=== PATIENT | male | born 1950 | race Two or more races ===

== ENCOUNTER 2017-04-10 17:55 | Inpatient (IN) | payer OTHER ==
[~2017-04-10] VITALS: Ht 170.2 cm; Wt 87.4 kg
[~2017-04-10 17:55] MED LIST: INSULIN ASPART 100 UNITS/ML, PEN SQ-INSULIN SCH; METOPROLOL TARTRATE 25 MG TABLET PO ONE
[2017-04-10] MEDS ORDERED: ALLO100T30 PO (18:13)
[2017-04-10] MEDS ORDERED: NAPR-816 PO (18:13)
[2017-04-10] MEDS ORDERED: ATOR20TA9 PO (18:13)
[2017-04-10] MEDS ORDERED: COLC0.6T37 PO (18:13)
[2017-04-10] MEDS ORDERED: ATEN25TA PO (18:13)
[2017-04-10] MEDS ORDERED: ASPI-621 PO (18:13)
[2017-04-10] MEDS ORDERED: LISI-170 PO (18:13)
[2017-04-10 18:50] VITALS: BP 132/71
[2017-04-10 19:02] LABS: PATH.CAST-FLAG NOT PRESENT; SPERM-FLAG NOT PRESENT; SRC-FLAG NOT PRESENT; XTAL-FLAG NOT PRESENT; YLC-FLAG NOT PRESENT
[2017-04-10] MEDS ORDERED: DO NOT GIVE XX SCH (23:00)
[2017-04-10] MEDS ORDERED: CHLORHEXIDINE MOUTHWASH 15 ML UDC MM SCH (23:00)
[2017-04-10] MEDS: MUPIROCIN OINT 2%, 22GM TP SCH (23:18)
[2017-04-11] MEDS ORDERED: ALBUMIN HUMAN 5% 500 ML IV PRN (00:30)
[2017-04-11 04:05] VITALS: BP_SYST 144; BP_SYST 149; BP_DIAS 68; BP_DIAS 78
[2017-04-11] MEDS: MUPIROCIN OINT 2%, 22GM TP SCH (04:57)
[2017-04-11] MEDS ORDERED: PROPOFOL 10 MG/ML, 20ML ONE (06:14)
[2017-04-11] MEDS ORDERED: FENTANYL PF 1000 MCG/20ML ONE (06:14)
[2017-04-11] MEDS ORDERED: MIDAZOLAM 10MG/2 ML ONE (06:14)
[2017-04-11] MEDS ORDERED: CALCIUM CHLORIDE 10%, 10ML SYR ONE (06:15)
[2017-04-11] MEDS ORDERED: ROCURONIUM 10 MG/ML,10ML ONE ×2 (06:15→08:27)
[2017-04-11] MEDS ORDERED: LIDOCAINE GEL 2%, 5ML ONE (06:15)
[2017-04-11] MEDS ORDERED: EPINEPHRINE 1 MG/ML, 1ML ONE (06:15)
[2017-04-11] MEDS ORDERED: TRANEXAMIC ACID 100 MG/ML, 10ML ONE ×6 (06:15→08:26)
[2017-04-11] MEDS ORDERED: PHENYLEPHRINE 10 MG/ML ONE (06:15)
[2017-04-11] MEDS ORDERED: HEPARIN 1,000 UNITS/ML, 10ML ONE (06:22)
[2017-04-11] MEDS ORDERED: PAPAVERINE 30 MG/ML, 2ML ONE (06:22)
[2017-04-11] MEDS ORDERED: VANCOMYCIN 1,300 MG in SODIUM CHLORIDE 0.9% 250 ML IV PRN (07:30)
[2017-04-11] MEDS ORDERED: REGULAR INSULIN 62.5 UNITS in SODIUM CHLORIDE 0.9% 249.375 ML IV PRN ×2 (07:30→10:46)
[2017-04-11] MEDS ORDERED: POTASSIUM CHLORIDE 80 MEQ, SODIUM BICARBONATE 8.4% 10 MEQ, MAGNESIUM SULFATE 0.5 GM, LI... IV PRN (07:30)
[2017-04-11] MEDS ORDERED: MANNITOL PMX 20% 500 ML IVPB PRN (07:30)
[2017-04-11] MEDS ORDERED: DEXMEDETOMIDINE 200 MCG in SODIUM CHLORIDE 0.9% 48 ML IV SCH (07:30)
[2017-04-11] MEDS ORDERED: EPINEPHRINE 2 MG in SODIUM CHLORIDE 0.9% 248 ML IV SCH (07:30)
[2017-04-11] MEDS ORDERED: PHENYLEPHRINE 10 MG in SODIUM CHLORIDE 0.9% 249 ML IV PRN (07:30)
[2017-04-11] MEDS ORDERED: HEPARIN 1,000 UNITS/ML, 10ML IV ONE (08:24)
[2017-04-11] MEDS ORDERED: PAPAVERINE 30 MG/ML, 2ML IVPush ONE (08:25)
[2017-04-11] MEDS ORDERED: PROTAMINE SULFATE 10 MG/ML, 25ML ONE ×2 (08:26)
[2017-04-11] MEDS ORDERED: LIDOCAINE-MPF 2% ,5ML ONE (10:24)
[2017-04-11] MEDS ORDERED: DOBUTAMINE 250 MG in SODIUM CHLORIDE 0.9% 230 ML IV PRN (10:46)
[2017-04-11] MEDS ORDERED: NITROGLYCERIN/D5W PMX 240 ML IV PRN (10:46)
[2017-04-11] MEDS ORDERED: DEXMEDETOMIDINE 200 MCG in SODIUM CHLORIDE 0.9% 48 ML IV PRN (10:46)
[2017-04-11] MEDS ORDERED: VASOPRESSIN 50 UNIT in SODIUM CHLORIDE 0.9% 250 ML IV PRN (10:46)
[2017-04-11] MEDS ORDERED: SODIUM BICARB 8.4%, 50ML SYRINGE ONE (10:57)
[2017-04-11] MEDS ORDERED: HEPARIN 1,000 UNITS/ML, 30ML ONE (10:57)
[2017-04-11] MEDS ORDERED: LIDOCAINE 2% 100MG/5ML SYRINGE ONE (10:57)
[2017-04-11] MEDS ORDERED: ALBUMIN HUMAN 25% 50 ML ONE (10:57)
[2017-04-11] MEDS ORDERED: VANCOMYCIN 1,300 MG in SODIUM CHLORIDE 0.9% 250 ML IVPB SCH (11:00)
[2017-04-11] MEDS ORDERED: ACETAMINOPHEN 650 MG SUPP PR PRN (11:00)
[2017-04-11] MEDS ORDERED: BISACODYL 10 MG SUPP PR PRN (11:00)
[2017-04-11] MEDS ORDERED: LACTATED RINGERS 1,000 ML IV PRN (11:00)
[2017-04-11] MEDS ORDERED: MIDAZOLAM 1 MG/ML, 5ML IVPush PRN (11:00)
[2017-04-11] MEDS ORDERED: CEFUROXIME 1.5 GM in SODIUM CHLORIDE 0.9% 50 ML IVPB SCH (11:00)
[2017-04-11] MEDS ORDERED: GLUCAGON 1 MG IM PRN (11:00)
[2017-04-11] MEDS ORDERED: DEXTROSE 50%, 50ML SYRINGE IVPush PRN (11:00)
[2017-04-11] MEDS ORDERED: EPINEPHRINE 2 MG in SODIUM CHLORIDE 0.9% 248 ML IV PRN (11:00)
[2017-04-11] MEDS ORDERED: BISACODYL 5 MG EC TABLET PO PRN (11:00)
[2017-04-11] MEDS ORDERED: ACETAMINOPHEN 325 MG TABLET PO PRN (11:00)
[2017-04-11] MEDS: KSCALE TO 4.5 IV SCH ×3 (11:00→23:00)
[2017-04-11] MEDS ORDERED: SODIUM BICARB 8.4%, 50ML SYRINGE IV PRN (11:00)
[2017-04-11] MEDS: INSULIN ASPART 100 UNITS/ML, PEN SQ-INSULIN SCH ×3 (11:00→21:00)
[2017-04-11] MEDS ORDERED: DEXTROSE 4 GM TAB.CHEW PO PRN (11:00)
[2017-04-11] MEDS ORDERED: HYDROcodone/APAP 5/325 TABLET PO PRN (11:00)
[2017-04-11] MEDS ORDERED: PROCHLORPERAZINE 5 MG/ML, 2ML IVPush PRN (11:00)
[2017-04-11 11:13] LABS: ABG COLLECTION SITE ARTERIAL LINE
[2017-04-11] MEDS ORDERED: VANCOMYCIN 1,300 MG in SODIUM CHLORIDE 0.9% 250 ML IVPB ONE (11:30)
[2017-04-11] MEDS: morphine SULFATE 10 MG/ML, 1ML IVPush PRN ×3 (11:38→21:23)
[2017-04-11] MEDS ORDERED: POTASSIUM CHLORIDE PMX 100 ML IV ONE (12:00)
[2017-04-11] MEDS: DOCUSATE 100 MG CAPSULE PO SCH ×2 (12:29→21:09)
[2017-04-11] MEDS: SODIUM CHLORIDE FLUSH 10ML SYR IVF SCH ×3 (12:29→21:08)
[2017-04-11] MEDS: MAGNESIUM SULFATE 1 GM in SODIUM CHLORIDE 0.9% 50 ML IVPB SCH (12:48)
[2017-04-11] MEDS: ONDANSETRON 2MG/ML, 2ML IVPush PRN (15:30)
[2017-04-11 16:40] LABS: HEMATOCRIT 41.6 % (39.2-51.8); HEMOGLOBIN 13.7 g/dL (13.7-18.0)
[2017-04-11] MEDS: HYDROcodone/APAP 10/325 MG TABLET PO PRN ×2 (17:00→21:06)
[2017-04-11] MEDS: OXYcodone IR 5MG TABLET PO PRN (18:25)
[2017-04-11] MEDS: MUPIROCIN OINT 2%, 22GM NAS SCH (21:00)
[2017-04-11 23:20] LABS: HEMATOCRIT 40.9 % (39.2-51.8); HEMOGLOBIN 13.7 g/dL (13.7-18.0)
[2017-04-11 23:23] LABS: BLOOD UREA NITROGEN 15 mg/dL (7-18)
[2017-04-12] MEDS: OXYcodone IR 5MG TABLET PO PRN ×6 (00:34→21:09)
[2017-04-12] MEDS: INSULIN ASPART 100 UNITS/ML, PEN SQ-INSULIN SCH ×6 (01:00→19:00)
[2017-04-12 04:54] LABS: ABG COLLECTION SITE ARTERIAL LINE
[2017-04-12 04:56] LABS: HEMATOCRIT 40.9 % (39.2-51.8); HEMOGLOBIN 13.6 g/dL (13.7-18.0); WHITE BLOOD COUNT 10.2 x10^3/uL (3.4-10)
[2017-04-12] MEDS: KSCALE TO 4.5 IV SCH (05:00)
[2017-04-12 05:06] LABS: BLOOD UREA NITROGEN 17 mg/dL (7-18)
[2017-04-12] MEDS: ONDANSETRON 2MG/ML, 2ML IVPush PRN (06:45)
[2017-04-12] MEDS ORDERED: METOPROLOL TARTRATE 25 MG TABLET ONE (07:59)
[2017-04-12] MEDS ORDERED: FILTER 0.22 MICRON FOR AMIODARONE IV PRN (08:00)
[2017-04-12] MEDS ORDERED: MAGNESIUM HYDROXIDE 8%, 30ML UDC PO PRN (08:00)
[2017-04-12] MEDS ORDERED: AMIODARONE 150 MG in DEXTROSE 5% 100 ML IV ONE (08:00)
[2017-04-12] MEDS: MUPIROCIN OINT 2%, 22GM NAS SCH ×2 (08:19→21:00)
[2017-04-12] MEDS: SODIUM CHLORIDE FLUSH 10ML SYR IVF SCH ×5 (08:19→21:53)
[2017-04-12] MEDS: ASPIRIN 81 MG TABLET EC PO SCH (08:19)
[2017-04-12] MEDS: DOCUSATE 100 MG CAPSULE PO SCH ×2 (08:19→21:54)
[2017-04-12] MEDS: METOPROLOL TARTRATE 25 MG TABLET PO/NG SCH ×2 (08:19→21:54)
[2017-04-12] MEDS: MUPIROCIN OINT 2%, 22GM TP SCH (08:20)
[2017-04-12] MEDS: ALLOPURINOL 300 MG TABLET PO SCH (08:51)
[2017-04-12] MEDS ORDERED: FUROSEMIDE 40 MG/4 ML IV ONE (10:30)
[2017-04-12] MEDS: AMIODARONE 900 MG in DEXTROSE 5% 482 ML IV PRN (10:42)
[2017-04-12] MEDS: MAGNESIUM SULFATE 1 GM in SODIUM CHLORIDE 0.9% 50 ML IVPB SCH (12:54)
[2017-04-12 16:02] VITALS: BP 134/77
[2017-04-12 19:13] VITALS: BP 133/74
[2017-04-12 21:52] VITALS: BP 130/84
[2017-04-12] MEDS: ATORVASTATIN 20 MG TABLET PO SCH (21:54)
[2017-04-13 04:03] VITALS: BP 123/81
[2017-04-13] MEDS: AMIODARONE 900 MG in DEXTROSE 5% 482 ML IV PRN (05:33)
[2017-04-13 05:37] LABS: HEMATOCRIT 42.8 % (39.2-51.8); HEMOGLOBIN 14.2 g/dL (13.7-18.0); WHITE BLOOD COUNT 12.6 x10^3/uL (3.4-10)
[2017-04-13 05:50] LABS: BLOOD UREA NITROGEN 18 mg/dL (7-18)
[2017-04-13] MEDS: INSULIN ASPART 100 UNITS/ML, PEN SQ-INSULIN SCH ×4 (07:00→20:28)
[2017-04-13] MEDS ORDERED: POTASSIUM CHLORIDE 20 MEQ TAB.ER.PRT ONE (08:01)
[2017-04-13] MEDS: FUROSEMIDE 20 MG/2 ML IV SCH (08:09)
[2017-04-13] MEDS: SODIUM CHLORIDE FLUSH 10ML SYR IVF SCH ×6 (08:09→20:30)
[2017-04-13] MEDS: MUPIROCIN OINT 2%, 22GM NAS SCH ×2 (08:10→20:29)
[2017-04-13] MEDS: ASPIRIN 81 MG TABLET EC PO SCH (08:11)
[2017-04-13] MEDS: ALLOPURINOL 300 MG TABLET PO SCH (08:11)
[2017-04-13] MEDS: POTASSIUM CHLORIDE 10 MEQ TABLET.ER PO SCH (08:11)
[2017-04-13] MEDS: DOCUSATE 100 MG CAPSULE PO SCH ×2 (08:11→20:27)
[2017-04-13] MEDS: METOPROLOL TARTRATE 25 MG TABLET PO/NG SCH ×2 (08:12→20:28)
[2017-04-13] MEDS: OXYcodone IR 5MG TABLET PO PRN ×3 (08:12→19:48)
[2017-04-13] MEDS: ENOXAPARIN 40 MG/0.4 ML SQ SCH (08:12)
[2017-04-13 08:18] VITALS: BP 144/90
[2017-04-13] MEDS: MAGNESIUM SULFATE 1 GM in SODIUM CHLORIDE 0.9% 50 ML IVPB SCH (11:18)
[2017-04-13 15:27] VITALS: BP 137/77
[2017-04-13 19:57] VITALS: BP 129/78
[2017-04-13] MEDS: ATORVASTATIN 20 MG TABLET PO SCH (20:27)
[2017-04-14 04:05] VITALS: BP 137/80
[2017-04-14 06:04] LABS: BLOOD UREA NITROGEN 18 mg/dL (7-18)
[2017-04-14] MEDS: INSULIN ASPART 100 UNITS/ML, PEN SQ-INSULIN SCH ×4 (07:00→21:00)
[2017-04-14] MEDS: OXYcodone IR 5MG TABLET PO PRN ×4 (08:00→22:26)
[2017-04-14 08:01] VITALS: BP 148/82
[2017-04-14] MEDS: SODIUM CHLORIDE FLUSH 10ML SYR IVF SCH ×6 (09:00→22:10)
[2017-04-14] MEDS: MUPIROCIN OINT 2%, 22GM NAS SCH ×2 (09:00→22:12)
[2017-04-14] MEDS: FUROSEMIDE 20 MG/2 ML IV SCH (09:04)
[2017-04-14] MEDS: POTASSIUM CHLORIDE 10 MEQ TABLET.ER PO SCH (09:06)
[2017-04-14] MEDS: ASPIRIN 81 MG TABLET EC PO SCH (09:06)
[2017-04-14] MEDS: DOCUSATE 100 MG CAPSULE PO SCH ×2 (09:06→22:12)
[2017-04-14] MEDS: ALLOPURINOL 300 MG TABLET PO SCH (09:07)
[2017-04-14] MEDS: ENOXAPARIN 40 MG/0.4 ML SQ SCH (09:07)
[2017-04-14] MEDS: METOPROLOL TARTRATE 25 MG TABLET PO/NG SCH ×2 (09:08→22:13)
[2017-04-14] MEDS: CLOPIDOGREL 75 MG TABLET PO SCH (09:09)
[2017-04-14 15:56] VITALS: BP 124/70
[2017-04-14 18:34] VITALS: BP 111/73
[2017-04-14] MEDS: ATORVASTATIN 20 MG TABLET PO SCH (21:00)
[2017-04-15 06:01] LABS: BLOOD UREA NITROGEN 23 mg/dL (7-18)
[2017-04-15] MEDS: INSULIN ASPART 100 UNITS/ML, PEN SQ-INSULIN SCH (06:42)
[2017-04-15 07:28] VITALS: BP 134/70
[2017-04-15] MEDS: OXYcodone IR 5MG TABLET PO PRN ×2 (08:16→20:25)
[2017-04-15] MEDS: POTASSIUM CHLORIDE 10 MEQ TABLET.ER PO SCH (08:17)
[2017-04-15] MEDS: DOCUSATE 100 MG CAPSULE PO SCH ×2 (08:17→20:11)
[2017-04-15] MEDS: METOPROLOL TARTRATE 25 MG TABLET PO/NG SCH ×2 (08:17→20:12)
[2017-04-15] MEDS: CLOPIDOGREL 75 MG TABLET PO SCH (08:17)
[2017-04-15] MEDS: ASPIRIN 81 MG TABLET EC PO SCH (08:17)
[2017-04-15] MEDS: MUPIROCIN OINT 2%, 22GM NAS SCH ×2 (08:17→20:11)
[2017-04-15] MEDS: ALLOPURINOL 300 MG TABLET PO SCH (08:17)
[2017-04-15] MEDS: FUROSEMIDE 40 MG/4 ML IV SCH (08:18)
[2017-04-15] MEDS: ENOXAPARIN 40 MG/0.4 ML SQ SCH (08:18)
[2017-04-15] MEDS: SODIUM CHLORIDE FLUSH 10ML SYR IVF SCH ×6 (08:19→20:13)
[2017-04-15 10:09] LABS: HEMATOCRIT 41.3 % (39.2-51.8); HEMOGLOBIN 13.6 g/dL (13.7-18.0); WHITE BLOOD COUNT 9.2 x10^3/uL (3.4-10)
[2017-04-15 13:01] VITALS: BP 113/78
[2017-04-15 19:39] VITALS: BP 108/67
[2017-04-15] MEDS: ATORVASTATIN 20 MG TABLET PO SCH (20:11)
[2017-04-16 01:12] VITALS: BP 118/73
[2017-04-16] MEDS: OXYcodone IR 5MG TABLET PO PRN ×2 (02:00→09:32)
[2017-04-16 04:57] LABS: HEMATOCRIT 42.3 % (39.2-51.8); HEMOGLOBIN 14.2 g/dL (13.7-18.0); WHITE BLOOD COUNT 9.8 x10^3/uL (3.4-10)
[2017-04-16 05:05] LABS: BLOOD UREA NITROGEN 24 mg/dL (7-18)
[2017-04-16 07:09] VITALS: BP 138/79
[2017-04-16] MEDS: ENOXAPARIN 40 MG/0.4 ML SQ SCH (08:26)
[2017-04-16] MEDS: METOPROLOL TARTRATE 25 MG TABLET PO/NG SCH (08:26)
[2017-04-16] MEDS: CLOPIDOGREL 75 MG TABLET PO SCH (08:26)
[2017-04-16] MEDS: FUROSEMIDE 40 MG/4 ML IV SCH (08:26)
[2017-04-16] MEDS: ALLOPURINOL 300 MG TABLET PO SCH (08:26)
[2017-04-16] MEDS: ASPIRIN 81 MG TABLET EC PO SCH (08:27)
[2017-04-16] MEDS: POTASSIUM CHLORIDE 10 MEQ TABLET.ER PO SCH (08:27)
[2017-04-16] MEDS: SODIUM CHLORIDE FLUSH 10ML SYR IVF SCH ×3 (08:27)
[2017-04-16] MEDS: MUPIROCIN OINT 2%, 22GM NAS SCH (08:27)
[2017-04-16] MEDS: DOCUSATE 100 MG CAPSULE PO SCH (08:27)
[2017-04-16] MEDS ORDERED: METO25TA35 PO/NG (09:19)
[2017-04-16] MEDS ORDERED: FURO-93 PO (09:19)
[2017-04-16] MEDS ORDERED: POTA10TA5 PO (09:19)
[2017-04-16] MEDS ORDERED: CLOP75TA PO (09:19)
[2017-04-16] MEDS ORDERED: COLCHICINE 0.6 MG TABLET PO ONE (09:30)
[2017-04-16] MEDS ORDERED: COLCHICINE 0.6 MG TABLET PO SCH (10:30)
[2017-04-16] MEDS ORDERED: OXYC5TAB3 PO (11:38)
[2017-04-16 13:54] VITALS: BP 115/69
[2017-04-17] MEDS ORDERED: COLCHICINE 0.6 MG TABLET PO PRN (09:30)
== END 2017-04-16 15:57 | disposition home or self-care (01) | DRG 236 ==
LOC: 5SO 17:55 → CSU 04-11 10:25 → 5SO 04-12 15:34
PROVIDERS: ADMIT Thoracic Surgery (Cardiothoracic Vascular Surgery); ATTEND Thoracic Surgery (Cardiothoracic Vascular Surgery)
PROC: 02100Z9 Bypass Coronary Artery, One Artery from Left Internal Mammary, Open Approach (ICD-10-PCS; 2017-04-11)
PROC: 06BQ0ZZ Excision of Left Saphenous Vein, Open Approach (ICD-10-PCS; 2017-04-11)
PROC: 5A1221Z Performance of Cardiac Output, Continuous (ICD-10-PCS; 2017-04-11)
PROC: 021009W Bypass Coronary Artery, One Artery from Aorta with Autologous Venous Tissue, Open Approach (ICD-10-PCS; principal; 2017-04-11 07:30)
DX: I25.10 Atherosclerotic heart disease of native coronary artery without angina pectoris (principal); I48.91 Unspecified atrial fibrillation; E78.00 Pure hypercholesterolemia, unspecified; F17.290 Nicotine dependence, other tobacco product, uncomplicated; F32.9 Major depressive disorder, single episode, unspecified; I10 Essential (primary) hypertension; I34.0 Nonrheumatic mitral (valve) insufficiency; I35.1 Nonrheumatic aortic (valve) insufficiency; I49.3 Ventricular premature depolarization; M10.9 Gout, unspecified; Z82.49 Family history of ischemic heart disease and other diseases of the circulatory system; Z87.11 Personal history of peptic ulcer disease; Z87.442 Personal history of urinary calculi
CPT/HCPCS: 36415; 36600; 71010; 80048; 81001; 82040; 82330; 82800; 82803; 82810; 82947; 82962; 83036; 83735; 84132; 84295; 85014; 85018; 85025; 85049; 85347; 85610; 85730; 86850; 86900; 86923; 87081; 93005; 93312; 93321; 93325; 93882; 94002; J0171; J1644; J1650; J1815; J1940; J2250; J2405; J2704; J2720; J3010; J3370; J3475; J3480; J3490; P9045; P9047; C1751; C1760; J0282; J2270; J2370; J2440; J7050; J7060

== ENCOUNTER → 2017-06-08 | Outpatient (CLI) | payer OTHER ==
[~2017-06-08] MED LIST changes: +ALLO100T30 PO; +ASPI-621 PO; +ATEN25TA PO; +ATOR20TA9 PO; +CLOP75TA PO; +COLC0.6T37 PO; +FURO-93 PO; -INSULIN ASPART 100 UNITS/ML, PEN SQ-INSULIN SCH; +LISI-170 PO; +METO25TA35 PO/NG; -METOPROLOL TARTRATE 25 MG TABLET PO ONE; +NAPR-816 PO; +OXYC5TAB3 PO; +POTA10TA5 PO
== END | disposition home or self-care (01) ==
LOC: RAD 10:02
PROVIDERS: ATTEND Nurse Practitioner
DX: J98.11 Atelectasis (principal); J98.6 Disorders of diaphragm
CPT/HCPCS: 71046